=== PATIENT | male | born 1995 | race Caucasian/White ===

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

== ENCOUNTER 2017-02-26 22:36 | Emergency (ER) | payer OTHER ==
[~2017-02-26] VITALS: Ht 182.9 cm; Wt 63.6 kg
[~2017-02-26 22:36] MED LIST: CYCLOBENZAPRINE10 M1 PO; KETOROLAC10 MG PO
[2017-02-26 22:45] VITALS: BP 137/92
[2017-02-26 23:45] LABS: EOS # 0.3 (0.04-0.40); EOS % 2.4 % (0.0-4.0); HEMATOCRIT 46.7 % (36.0-47.0); LYMPH# 2.3 (1.50-4.00); MEAN CELL VOLUME 91 fl (78-95); MEAN CORPUSCULAR HEMOGLOBIN 31 pg (26-32); MEAN CORPUSCULAR HGB CONC 34 g/dL (33-37); MEAN PLATELET VOLUME 10.4 fl (7.4-10.4); NEU # 7.1 (1.40-6.50); PLATELET COUNT 238 K/mm3 (130-400); RED BLOOD COUNT 5.11 M/mm3 (4.20-5.60); RED CELL DISTRIBUTION WIDTH 12.8 % (11.5-14.5); WHITE BLOOD COUNT 10.7 K/mm3 (4.8-10.8)
[2017-02-27 00:07] LABS: URINE APPEARANCE CLEAR; URINE BILIRUBIN NEGATIVE (NEGATIVE); URINE BLOOD NEGATIVE (NEGATIVE); URINE COLOR YELLOW; URINE GLUCOSE NEGATIVE (NEGATIVE); URINE KETONE NEGATIVE (NEGATIVE); URINE LEUKOCYTE ESTERASE NEGATIVE (NEGATIVE); URINE NITRATE NEGATIVE (NEGATIVE); URINE PROTEIN(semi-quant) TRACE mg/dL (NEGATIVE); URINE UROBILINOGEN NORMAL (NORMAL); URINE WBC 0-1 /hpf (0-3)
[2017-02-27 00:08] LABS: URINE MUCUS PRESENT (NOT PRESENT)
[2017-02-27] MEDS ORDERED: KETOROLAC10 MG PO (00:42)
== END 2017-02-27 00:45 | disposition home or self-care (01) ==
LOC: ED 22:36
PROVIDERS: Family Medicine
DX: S06.0X0A Concussion without loss of consciousness, initial encounter (principal); V47.5XXA Car driver injured in collision with fixed or stationary object in traffic accident, initial encounter; Y92.410 Unspecified street and highway as the place of occurrence of the external cause; R40.2412 Glasgow coma scale score 13-15, at arrival to emergency department; F17.200 Nicotine dependence, unspecified, uncomplicated
CPT/HCPCS: J1885; L0150

== ENCOUNTER 2017-04-03 23:44 | Emergency (ER) | payer SELFPAY ==
[~2017-04-03] VITALS: Ht 182.9 cm; Wt 59.1 kg
[2017-04-04 01:48] VITALS: BP 100/58
== END 2017-04-04 01:48 | disposition home or self-care (01) ==
LOC: ED 23:44
DX: T44.7X1A Poisoning by beta-adrenoreceptor antagonists, accidental (unintentional), initial encounter (principal); Y92.009 Unspecified place in unspecified non-institutional (private) residence as the place of occurrence of the external cause; F17.200 Nicotine dependence, unspecified, uncomplicated

== ENCOUNTER 2017-05-30 01:09 | Emergency (ER) | payer SELFPAY ==
[~2017-05-30] VITALS: Ht 180.3 cm; Wt 62.5 kg
[2017-05-30 03:20] VITALS: BP 121/68
== END 2017-05-30 03:20 | disposition home or self-care (01) ==
LOC: ED 01:09
DX: T47.1X1A Poisoning by other antacids and anti-gastric-secretion drugs, accidental (unintentional), initial encounter (principal)

== ENCOUNTER 2018-02-11 14:58 | Emergency (ER) | payer SELFPAY ==
[~2018-02-11] VITALS: Ht 180.3 cm; Wt 63.6 kg
[2018-02-11] MEDS ORDERED: TYLENOL 500MG500 MG PO (15:17)
[2018-02-11 15:59] LABS: EOS # 0.2 (0.04-0.40); HEMATOCRIT 49.7 % (36.0-47.0); HEMOGLOBIN 16.4 g/dL (12.5-16.1); LYMPH# 2.2 (1.50-4.00); MEAN CELL VOLUME 94 fl (78-95); MEAN CORPUSCULAR HEMOGLOBIN 31 pg (26-32); MEAN CORPUSCULAR HGB CONC 33 g/dL (33-37); MEAN PLATELET VOLUME 10.3 fl (7.4-10.4); MONO # 0.7 (0.20-0.80); NEU # 6.1 (1.40-6.50); PLATELET COUNT 220 K/mm3 (130-400); RED BLOOD COUNT 5.28 M/mm3 (4.20-5.60); WHITE BLOOD COUNT 9.2 K/mm3 (4.8-10.8)
[2018-02-11 16:07] LABS: ALBUMIN 4.4 g/dL (3.5-5.0); CALCIUM 9.2 mg/dL (8.4-10.2); POTASSIUM 3.9 mmol/L (3.6-5.0); TOTAL BILIRUBIN 0.6 mg/dL (0.2-1.3); TOTAL PROTEIN 7.4 g/dL (6.3-8.2)
[2018-02-11 17:19] LABS: URINE APPEARANCE CLEAR; URINE COLOR YELLOW
[2018-02-11 17:20] LABS: PH-URINE 5.5 (5.0 - 8.0); URINE BILIRUBIN NEGATIVE (NEGATIVE); URINE BLOOD NEGATIVE (NEGATIVE); URINE GLUCOSE NEGATIVE (NEGATIVE); URINE KETONE 1+ (NEGATIVE); URINE LEUKOCYTE ESTERASE NEGATIVE (NEGATIVE); URINE NITRATE NEGATIVE (NEGATIVE); URINE PROTEIN(semi-quant) TRACE mg/dL (NEGATIVE); URINE UROBILINOGEN NORMAL (NORMAL); URINE WBC 0-1 /hpf (0-3)
[2018-02-11 18:14] VITALS: BP 111/59
== END 2018-02-11 18:23 | disposition home or self-care (01) ==
LOC: ED 14:58
PROVIDERS: Nurse Practitioner Primary Care
DX: T39.1X1A Poisoning by 4-Aminophenol derivatives, accidental (unintentional), initial encounter (principal); Z72.0 Tobacco use
CPT/HCPCS: J1885; J2405

== ENCOUNTER 2018-03-11 19:22 | Emergency (ER) | payer SELFPAY ==
[~2018-03-11] VITALS: Ht 167.6 cm; Wt 72.7 kg
[~2018-03-11 19:22] MED LIST changes: +TYLENOL 500MG500 MG PO
[2018-03-11 19:35] VITALS: BP 107/62
== END 2018-03-11 20:20 | disposition left against medical advice (07) ==
LOC: ED 19:22
DX: R05 Cough (principal); Z53.21 Procedure and treatment not carried out due to patient leaving prior to being seen by health care provider

== ENCOUNTER 2018-05-05 17:39 | Emergency (ER) | payer SELFPAY ==
[~2018-05-05] VITALS: Ht 182.9 cm; Wt 63.6 kg
[2018-05-05] MEDS ORDERED: CEPHALEXIN500 M2 PO (20:16)
[2018-05-05 20:29] VITALS: BP 119/73
== END 2018-05-05 20:29 | disposition home or self-care (01) ==
LOC: ED 17:39
DX: S61.411A Laceration without foreign body of right hand, initial encounter (principal); Z23 Encounter for immunization; F17.210 Nicotine dependence, cigarettes, uncomplicated; W22.01XA Walked into wall, initial encounter; Y92.59 Other trade areas as the place of occurrence of the external cause; Y99.0 Civilian activity done for income or pay
CPT/HCPCS: 90715

== ENCOUNTER 2018-05-15 16:00 | Emergency (ER) | payer SELFPAY ==
[~2018-05-15] VITALS: Ht 182.9 cm; Wt 63.6 kg
[~2018-05-15 16:00] MED LIST changes: +CEPHALEXIN500 M2 PO
[2018-05-15 16:20] VITALS: BP 122/74
== END 2018-05-15 16:20 | disposition home or self-care (01) ==
LOC: ED 16:00
DX: S61.411D Laceration without foreign body of right hand, subsequent encounter (principal)

== ENCOUNTER 2018-08-25 19:51 | Emergency (ER) | payer SELFPAY ==
[~2018-08-25] VITALS: Ht 180.3 cm; Wt 68.2 kg
[2018-08-25 21:12] VITALS: BP 115/73
== END 2018-08-25 21:12 | disposition home or self-care (01) ==
LOC: ED 19:51
DX: S60.511A Abrasion of right hand, initial encounter (principal); W31.1XXA Contact with metalworking machines, initial encounter; F17.210 Nicotine dependence, cigarettes, uncomplicated; Y93.89 Activity, other specified; Y92.009 Unspecified place in unspecified non-institutional (private) residence as the place of occurrence of the external cause

== ENCOUNTER 2020-02-27 21:41 | Emergency (ER) | payer SELFPAY ==
[~2020-02-27] VITALS: Ht 180.3 cm; Wt 63.6 kg
[2020-02-28 00:39] VITALS: BP 114/74
== END 2020-02-28 00:39 | disposition home or self-care (01) ==
LOC: ED 21:41
DX: H60.92 Unspecified otitis externa, left ear (principal)

== ENCOUNTER 2020-12-14 13:08 | Emergency (ER) | payer SELFPAY ==
[~2020-12-14] VITALS: Ht 177.8 cm; Wt 55.9 kg
[2020-12-14 15:28] LABS: BASO # 0.05 (0.02-0.10); EOS # 0.15 (0.04-0.40); EOS % 0.9 % (0.0-4.0); HEMATOCRIT 48.2 % (42.0-52.0); HEMOGLOBIN 16.3 g/dL (13.5-18.0); LYMPH# 1.53 (1.50-4.00); MEAN CELL VOLUME 93 fl (78-100); MEAN CORPUSCULAR HEMOGLOBIN 31 pg (27-31); MEAN CORPUSCULAR HGB CONC 34 g/dL (33-37); MEAN PLATELET VOLUME 10.8 fl (7.4-10.4); MONO # 0.74 (0.20-0.80); NEU # 15.01 (1.40-6.50); PLATELET COUNT 254 K/mm3 (130-400); RED BLOOD COUNT 5.19 M/mm3 (4.20-5.60); RED CELL DISTRIBUTION WIDTH 12.2 % (11.5-14.5); WHITE BLOOD COUNT 17.5 K/mm3 (4.8-10.8)
[2020-12-14 15:33] LABS: POTASSIUM 4.1 mmol/L (3.5-5.1)
[2020-12-14 16:58] LABS: URINE APPEARANCE CLOUDY; URINE COLOR AMBER
[2020-12-14 16:59] LABS: URINE BILIRUBIN 2+ (NEGATIVE); URINE BLOOD 250 ery/uL (NEGATIVE); URINE GLUCOSE NEGATIVE (NEGATIVE); URINE KETONE 2+ (NEGATIVE); URINE LEUKOCYTE ESTERASE NEGATIVE (NEGATIVE); URINE MUCUS PRESENT (NOT PRESENT); URINE NITRATE NEGATIVE (NEGATIVE); URINE PROTEIN(semi-quant) 1+ mg/dL (NEGATIVE); URINE UROBILINOGEN 4 mg/dL (NORMAL)
[2020-12-14] MEDS ORDERED: ZOFRAN ODT4 MG PO (18:11)
[2020-12-14] MEDS ORDERED: KETOROLAC10 MG PO (18:11)
[2020-12-14 18:26] VITALS: BP 119/77
== END 2020-12-14 18:33 | disposition home or self-care (01) ==
LOC: ED 13:08
PROVIDERS: Family Medicine
DX: N13.2 Hydronephrosis with renal and ureteral calculous obstruction (principal); F17.210 Nicotine dependence, cigarettes, uncomplicated
CPT/HCPCS: J1885

== ENCOUNTER 2021-08-31 01:53 | Emergency (ER) | payer SELFPAY ==
[~2021-08-31] VITALS: Ht 180.3 cm; Wt 63.6 kg
[~2021-08-31 01:53] MED LIST changes: +ZOFRAN ODT4 MG PO
[2021-08-31 02:58] LABS: BASO # 0.04 K/mm3 (0.02-0.10); EOS % 2.1 % (0.0-4.0); HEMATOCRIT 40.8 % (42.0-52.0); HEMOGLOBIN 13.7 g/dL (13.5-18.0); LYMPH# 1.84 K/mm3 (1.50-4.00); MEAN CELL VOLUME 95 fl (78-100); MEAN CORPUSCULAR HEMOGLOBIN 32 pg (27-31); MEAN CORPUSCULAR HGB CONC 34 g/dL (33-37); MEAN PLATELET VOLUME 9.9 fl (7.4-10.4); MONO # 0.58 K/mm3 (0.20-0.80); NEU # 6.69 K/mm3 (1.40-6.50); PLATELET COUNT 241 K/mm3 (130-400); RED BLOOD COUNT 4.29 M/mm3 (4.20-5.60); RED CELL DISTRIBUTION WIDTH 12.5 % (11.5-14.5); WHITE BLOOD COUNT 9.4 K/mm3 (4.8-10.8)
[2021-08-31 03:05] LABS: ALBUMIN 3.9 g/dL (3.5-5.0); POTASSIUM 3.8 mmol/L (3.5-5.1); SODIUM 145 mmol/L (136-145)
[2021-08-31 03:06] LABS: CALCIUM 8.2 mg/dL (8.3-10.5)
[2021-08-31 03:07] LABS: GLUCOSE 94 mg/dL (75-110); TOTAL PROTEIN 6.6 g/dL (6.4-8.3)
[2021-08-31 03:08] LABS: CARBON DIOXIDE 19 mmol/L (22-29)
[2021-08-31 03:09] LABS: TOTAL BILIRUBIN 0.3 mg/dL (0.2-1.2)
[2021-08-31 03:10] LABS: ALCOHOL IN-HOUSE 204 mg/dL (<10)
[2021-08-31 03:13] LABS: AST-SGOT 23 U/L (5-34)
[2021-08-31 03:14] LABS: URINE APPEARANCE CLEAR; URINE BILIRUBIN NEGATIVE (NEGATIVE); URINE BLOOD TRACE (NEGATIVE); URINE COLOR LT YELLOW; URINE GLUCOSE NEGATIVE (NEGATIVE); URINE KETONE NEGATIVE (NEGATIVE); URINE LEUKOCYTE ESTERASE NEGATIVE (NEGATIVE); URINE NITRATE NEGATIVE (NEGATIVE); URINE PROTEIN(semi-quant) NEGATIVE (NEGATIVE); URINE UROBILINOGEN NORMAL (NORMAL); URINE WBC 0-1 /hpf (0-3)
[2021-08-31 03:14] LABS: ALT/SGPT 26 U/L (0-55)
[2021-08-31 03:15] LABS: ACETAMINOPHEN < 1 ug/mL
[2021-08-31 05:01] VITALS: BP 88/44
== END 2021-08-31 06:13 | disposition home or self-care (01) ==
LOC: ED 01:53
PROVIDERS: Nurse Practitioner Family
DX: F10.129 Alcohol abuse with intoxication, unspecified (principal); Y90.7 Blood alcohol level of 200-239 mg/100 ml
CPT/HCPCS: J2405; J7030

== ENCOUNTER 2022-06-19 21:41 | Emergency (ER) | payer SELFPAY ==
[~2022-06-19] VITALS: Ht 182.9 cm; Wt 63.6 kg
[2022-06-19 22:19] LABS: BASO # 0.03 K/mm3 (0.02-0.10); EOS # 0.16 K/mm3 (0.04-0.40); EOS % 2.2 % (0.0-4.0); HEMATOCRIT 47.1 % (42.0-52.0); HEMOGLOBIN 15.6 g/dL (13.5-18.0); LYMPH# 1.71 K/mm3 (1.50-4.00); MEAN CELL VOLUME 96 fl (78-100); MEAN CORPUSCULAR HEMOGLOBIN 32 pg (27-31); MEAN CORPUSCULAR HGB CONC 33 g/dL (33-37); MEAN PLATELET VOLUME 9.4 fl (7.4-10.4); MONO # 0.47 K/mm3 (0.20-0.80); NEU # 5.03 K/mm3 (1.40-6.50); PLATELET COUNT 236 K/mm3 (130-400); RED BLOOD COUNT 4.89 M/mm3 (4.20-5.60); RED CELL DISTRIBUTION WIDTH 12.9 % (11.5-14.5); WHITE BLOOD COUNT 7.4 K/mm3 (4.8-10.8)
[2022-06-19 22:23] LABS: URINE WBC 0 /hpf (0-3)
[2022-06-19 22:27] LABS: URINE COLOR STRAW
[2022-06-19 22:28] LABS: URINE APPEARANCE CLEAR; URINE BILIRUBIN NEGATIVE (NEGATIVE); URINE BLOOD NEGATIVE (NEGATIVE); URINE GLUCOSE NEGATIVE (NEGATIVE); URINE KETONE NEGATIVE (NEGATIVE); URINE LEUKOCYTE ESTERASE NEGATIVE (NEGATIVE); URINE NITRATE NEGATIVE (NEGATIVE); URINE PROTEIN(semi-quant) TRACE (NEGATIVE); URINE UROBILINOGEN NORMAL (NORMAL)
[2022-06-19 22:30] LABS: ALBUMIN 4.2 g/dL (3.5-5.0); POTASSIUM 3.7 mmol/L (3.5-5.1); SODIUM 143 mmol/L (136-145)
[2022-06-19 22:31] LABS: CALCIUM 8.9 mg/dL (8.3-10.5)
[2022-06-19 22:33] LABS: GLUCOSE 119 mg/dL (75-110); TOTAL PROTEIN 7.2 g/dL (6.4-8.3)
[2022-06-19 22:34] LABS: CARBON DIOXIDE 21 mmol/L (22-29); TOTAL BILIRUBIN 0.2 mg/dL (0.2-1.2)
[2022-06-19 22:35] LABS: ALCOHOL IN-HOUSE 249 mg/dL (<10)
[2022-06-19 22:38] LABS: AST-SGOT 24 U/L (5-34)
[2022-06-19 22:39] LABS: ALT/SGPT 33 U/L (0-55)
[2022-06-19 22:40] LABS: ACETAMINOPHEN < 1 ug/mL
[2022-06-20 06:30] VITALS: BP 87/47
== END 2022-06-20 06:45 | disposition home or self-care (01) ==
LOC: ED 21:41
PROVIDERS: Family Medicine
DX: G40.909 Epilepsy, unspecified, not intractable, without status epilepticus (principal); F10.129 Alcohol abuse with intoxication, unspecified; Y90.8 Blood alcohol level of 240 mg/100 ml or more; Z79.899 Other long term (current) drug therapy
CPT/HCPCS: J1953; J2310; J3411; J7030

== ENCOUNTER 2022-08-13 21:13 | Emergency (ER) | payer SELFPAY ==
[~2022-08-13] VITALS: Ht 177.8 cm; Wt 63.6 kg
[2022-08-13] MEDS ORDERED: LEVETIRACETAM500 M2 PO (21:36)
[2022-08-13] MEDS ORDERED: LIDOCAINE15 GM TP (23:46)
[2022-08-14 00:57] VITALS: BP 120/73
== END 2022-08-13 23:55 | disposition home or self-care (01) ==
LOC: ED 21:13
DX: S51.821A Laceration with foreign body of right forearm, initial encounter (principal); S61.421A Laceration with foreign body of right hand, initial encounter; Y04.0XXA Assault by unarmed brawl or fight, initial encounter
CPT/HCPCS: J1885

== ENCOUNTER 2024-05-20 16:20 | Emergency (ER) | payer SELFPAY ==
[~2024-05-20] VITALS: Ht 177.8 cm; Wt 68.2 kg
[~2024-05-20 16:20] MED LIST changes: +LEVETIRACETAM500 M2 PO; +LIDOCAINE15 GM TP
[2024-05-20 17:10] LABS: BASO # 0.05 K/mm3 (0.02-0.10); EOS # 0.35 K/mm3 (0.04-0.40); EOS % 3.9 % (0.0-4.0); HEMATOCRIT 49.2 % (42.0-52.0); HEMOGLOBIN 16.4 g/dL (13.5-18.0); LYMPH# 1.96 K/mm3 (1.50-4.00); MEAN CELL VOLUME 95 fl (78-100); MEAN CORPUSCULAR HEMOGLOBIN 32 pg (27-31); MEAN CORPUSCULAR HGB CONC 33 g/dL (33-37); MEAN PLATELET VOLUME 9.6 fl (7.4-10.4); MONO # 0.55 K/mm3 (0.20-0.80); NEU # 6.07 K/mm3 (1.40-6.50); PLATELET COUNT 263 K/mm3 (130-400); RED BLOOD COUNT 5.18 M/mm3 (4.20-5.60); RED CELL DISTRIBUTION WIDTH 11.8 % (11.5-14.5)
[2024-05-20] MEDS ORDERED: Famotidine 20 MG TAB PO ONE (17:15)
[2024-05-20 17:20] LABS: ALBUMIN 4.4 g/dL (3.5-5.0); CALCIUM 8.9 mg/dL (8.3-10.5)
[2024-05-20 17:21] LABS: TOTAL PROTEIN 8.2 g/dL (6.4-8.3)
[2024-05-20 17:23] LABS: TOTAL BILIRUBIN 0.2 mg/dL (0.2-1.2)
[2024-05-20 17:24] LABS: URINE APPEARANCE CLEAR (CLEAR); URINE BILIRUBIN NEGATIVE (NEGATIVE); URINE COLOR YELLOW (YELLOW); URINE GLUCOSE NEGATIVE (NEGATIVE); URINE KETONE NEGATIVE (NEGATIVE); URINE PROTEIN(semi-quant) NEGATIVE (NEGATIVE)
[2024-05-20 17:25] LABS: URINE BLOOD NEGATIVE (NEGATIVE); URINE LEUKOCYTE ESTERASE NEGATIVE (NEGATIVE); URINE NITRATE NEGATIVE (NEGATIVE); URINE WBC 0-1 /hpf (0-3)
[2024-05-20 18:15] VITALS: BP 112/79
== END 2024-05-20 18:24 | disposition home or self-care (01) ==
LOC: ED 16:20
PROVIDERS: Family Medicine
DX: F10.239 Alcohol dependence with withdrawal, unspecified (principal); R53.81 Other malaise